=== PATIENT | female | born 1940 | race Caucasian/White ===

== ENCOUNTER 2016-12-15 08:29 | Inpatient (IN) | payer MEDICARE, OTHER ==
[~2016-12-15] VITALS: Ht 160 cm; Wt 76.2 kg
[~2016-12-15 08:29] MED LIST: ACET-2154 PO; ASCO500T9 PO; BISA10SU12 RC; CITA10TA17 PO; CRAN425C PO; DOCU-25 PO; FAMO-132 PO; FERR-58 PO; FOLI1TAB16 PO; HEPA500014 IJ; IVER3TAB PO; LEVO100T PO; MAGN400O4 PO; MULT-70 PO; NA P133E RC; OXCA600T5 PO; OXYC-128 PO; PERMETHRIN TP; PERP2TAB5 PO; RXAMI XX; SENN1TAB83 PO; TRAZ-144 PO
[2016-12-15] MEDS ORDERED: OLAN5TAB3 PO (08:55)
[2016-12-15] MEDS ORDERED: ACET-2605 PO (08:55)
[2016-12-15] MEDS ORDERED: LORA-258 PO (08:55)
[2016-12-15] MEDS ORDERED: AMIN30LI2 PO (08:55)
[2016-12-15] MEDS ORDERED: ROBITUSSIN DM PO (08:55)
[2016-12-15] MEDS ORDERED: ALBU2.5V38 NEB (08:55)
[2016-12-15] MEDS ORDERED: MUPI22OI2 TP (08:55)
[2016-12-15] MEDS ORDERED: CRAN3875 PO (08:55)
[2016-12-15] MEDS ORDERED: MAALOX PO (08:55)
[2016-12-15] MEDS ORDERED: PANT40TA2 PO (08:55)
[2016-12-15] MEDS ORDERED: IPRATROPIUM NEB (08:55)
[2016-12-15] MEDS ORDERED: DIPH25CA83 PO (08:55)
[2016-12-15 09:16] LABS: BASOPHILS # (AUTO) 0.1 K/uL (0.0-0.2); BASOPHILS % (AUTO) 0.6 % (0.0-2.0); EOSINOPHILS # (AUTO) 0.3 K/uL (0.0-0.7); EOSINOPHILS % (AUTO) 3.2 % (0.0-7.0); HEMATOCRIT 33.1 % (37.0-47.0); HEMOGLOBIN 12.1 g/dL (12.0-16.0); LYMPHOCYTES # (AUTO) 0.8 K/uL (0.8-4.8); LYMPHOCYTES % (AUTO) 9.2 % (20.5-51.5); MEAN CORPUSCULAR HEMOGLOBIN 32.3 uug (27.0-31.0); MEAN CORPUSCULAR HGB CONC 37 g/dL (32.0-37.0); MEAN CORPUSCULAR VOLUME 88.2 fL (81.0-99.0); MONOCYTES # (AUTO) 0.5 K/uL (0.1-1.30); MONOCYTES % (AUTO) 5.8 % (0.0-11.0); NEUTROPHILS # (AUTO) 7.2 K/uL (1.8-8.9); NEUTROPHILS % (AUTO) 81.2 % (38.5-71.5); PLATELET COUNT (AUTO) 337 K/uL (150-450); RED BLOOD CELL COUNT(AUTO) 3.75 MIL/uL (4.20-5.40); RED CELL DISTRIBUTION WIDTH 13.4 % (11.5-14.5); WHITE BLOOD COUNT (AUTO) 8.9 K/uL (4.0-11.2)
[2016-12-15 09:17] LABS: CALCIUM 9.3 mg/dL (8.5-10.1); CARBON DIOXIDE 28 mmol/L (21-32); CHLORIDE 101 mmol/L (98-107); CREATININE 1.4 mg/dL (0.6-1.3); GLUCOSE 99 mg/dL (74-106); POTASSIUM 3.8 mmol/L (3.5-5.1); SODIUM SERUM 136 mmol/L (136-145); UREA NITROGEN, BLOOD 29 mg/dL (7-18)
[2016-12-15 09:30] LABS: ACETAMINOPHEN < 2.0 ug/mL (10-30); ALANINE AMINOTRANSFERASE 18 U/L (14-59); ALBUMIN 3.3 g/dL (3.4-5.0); ALKALINE PHOSPHATASE 116 U/L (50-136); ASPARTATE AMINOTRANSFERASE 13 U/L (15-37); BILIRUBIN,DIRECT 0.1 mg/dL (0.0-0.2); BILIRUBIN,TOTAL 0.3 mg/dL (0.2-1.0); TOTAL PROTEIN, SERUM 8.3 g/dL (6.4-8.2)
[2016-12-15 09:48] LABS: ETHANOL < 3 MG/DL (0-0)
[2016-12-15 12:08] LABS: *BILIRUBIN,URIN NEGATIVE (NEGATIVE); *BLOOD, URINE 2+ (NEGATIVE); *COLOR,URINE YELLOW (YELLOW); *KETONES,URINE NEGATIVE (NEGATIVE); *PROTEIN,URINE 1+ (NEGATIVE); *UROBILINOGEN,URINE 0.2 E.U./dl (NORMAL); LEUKOCYTE ESTERASE ,URINE 3+ (NEGATIVE); PH,URINE 5.5 (5.0-8.0); UGLUCOSE NEGATIVE (NEGATIVE)
[2016-12-15 12:10] LABS: *CLARITY,URINE TURBID (CLEAR); NITRITE, URINE POSITIVE (NEGATIVE)
[2016-12-15] MEDS ORDERED: ACETAMINOPHEN 325 MG TABLET PO PRN ×2 (12:15→13:45)
[2016-12-15] MEDS ORDERED: MAG HYDROX/AL HYDROX/SIMETH 30 ML LIQUID UDC PO PRN (12:15)
[2016-12-15] MEDS ORDERED: MAGNESIUM HYDROXIDE 30 ML LIQUID UDC PO PRN ×2 (12:15→13:45)
[2016-12-15 12:21] LABS: BACTERIA,URINE MANY /HPF (NONE SEEN); MUCUS,URINE MODERATE /LPF (0-FEW); RBC,URINE 80-100 /HPF (0-3); SQUAMOUS EPITHELIAL CELL,UR MODERATE /HPF (NONE SEEN); WBC,URINE TNTC /HPF (0-3)
[2016-12-15 12:22] LABS: *AMPHETAMINE, URINE NEGATIVE (NEGATIVE); *BARBITURATE, URINE NEGATIVE (NEGATIVE); *CANNABINOID, URINE NEGATIVE (NEGATIVE); *COCCAINE, URINE NEGATIVE (NEGATIVE); *OPIATE, URINE NEGATIVE (NEGATIVE); *PHENCYCLIDINE SCREEN,URINE NEGATIVE (NEGATIVE)
[2016-12-15] MEDS ORDERED: ALBUTEROL SULFATE 2.5 MG/3 ML NEBU NEB PRN (13:45)
[2016-12-15] MEDS ORDERED: diphenhydrAMINE 25 MG CAP PO PRN (13:45)
[2016-12-15] MEDS ORDERED: GUAIFENESIN/DEXTROMETHORPHAN 5 ML UDC PO PRN (13:45)
[2016-12-15] MEDS ORDERED: BISACODYL 10 MG SUPP.RECT RC PRN (13:45)
[2016-12-15] MEDS ORDERED: FLEET ENEMA 133 ML BOTTLE RC PRN (13:45)
[2016-12-15] MEDS ORDERED: IPRATROPIUM BROMIDE 0.5 MG/2.5 ML NEBU NEB PRN (13:45)
[2016-12-15] MEDS: PANTOPRAZOLE SODIUM 40 MG TABLET.DR PO SCH (14:49)
[2016-12-15] MEDS: ASCORBIC ACID 500 MG TABLET PO SCH (14:49)
[2016-12-15 16:00] VITALS: BP 109/65
[2016-12-15] MEDS: FERROUS SULFATE 325 MG TABEC PO SCH (16:54)
[2016-12-15] MEDS ORDERED: Medication Not On Formulary EA (Cranberry Extract (Cranberry) 425 MG) PO SCH (17:00)
[2016-12-15] MEDS ORDERED: Medication Not On Formulary EA (Cran/Vitc/Mannose/Inulin/Brom (Uti-Stat Liquid) 30 ML) PO SCH (17:00)
[2016-12-15 19:59] VITALS: BP 115/66
[2016-12-15] MEDS ORDERED: LEVOFLOXACIN 500 MG TABLET PO SCH (20:15)
[2016-12-15] MEDS: DOCUSATE SODIUM 100 MG CAPSULE PO SCH (20:31)
[2016-12-15] MEDS: TEMAZEPAM 7.5 MG CAPSULE PO PRN (21:53)
[2016-12-16] MEDS: PANTOPRAZOLE SODIUM 40 MG TABLET.DR PO SCH (06:14)
[2016-12-16 07:30] VITALS: BP 107/58
[2016-12-16] MEDS: ASCORBIC ACID 500 MG TABLET PO SCH (08:08)
[2016-12-16] MEDS: FERROUS SULFATE 325 MG TABEC PO SCH ×2 (08:08→17:14)
[2016-12-16] MEDS: PROTEIN SUPPLEMENT (PROSTAT) 30 ML LIQUID PO SCH (08:30)
[2016-12-16] MEDS: OXCARBAZEPINE 300 MG TABLET PO SCH ×2 (10:27→17:14)
[2016-12-16] MEDS: OLANZAPINE 5 MG TABLET PO SCH ×2 (10:27→17:13)
[2016-12-16 16:00] VITALS: BP 124/67
[2016-12-16] MEDS: CLONAZEPAM 0.5 MG TABLET PO PRN (17:14)
[2016-12-16 20:01] VITALS: BP 114/62
[2016-12-16] MEDS: DOCUSATE SODIUM 100 MG CAPSULE PO SCH (20:11)
[2016-12-16] MEDS: LEVOFLOXACIN 250 MG TABLET PO SCH (20:11)
[2016-12-16] MEDS: CLOTRIMAZOLE/BETAMET DIPROP CREAM 15 GM TUBE TOP SCH (20:14)
[2016-12-16] MEDS: TEMAZEPAM 7.5 MG CAPSULE PO PRN (21:15)
[2016-12-16] MEDS ORDERED: MUPIROCIN 2% OINT 22 GM TUBE ONE (21:16)
[2016-12-16] MEDS: MUPIROCIN 2% OINT 22 GM TUBE NS SCH (21:22)
[2016-12-17] MEDS: PANTOPRAZOLE SODIUM 40 MG TABLET.DR PO SCH (06:23)
[2016-12-17 08:11] LABS: BASOPHILS # (AUTO) 0.1 K/uL (0.0-0.2); BASOPHILS % (AUTO) 0.6 % (0.0-2.0); EOSINOPHILS # (AUTO) 0.3 K/uL (0.0-0.7); EOSINOPHILS % (AUTO) 3.7 % (0.0-7.0); HEMATOCRIT 35.1 % (37.0-47.0); HEMOGLOBIN 11.5 g/dL (12.0-16.0); LYMPHOCYTES # (AUTO) 1.1 K/uL (0.8-4.8); LYMPHOCYTES % (AUTO) 12.2 % (20.5-51.5); MEAN CORPUSCULAR HEMOGLOBIN 29.1 uug (27.0-31.0); MEAN CORPUSCULAR HGB CONC 33 g/dL (32.0-37.0); MEAN CORPUSCULAR VOLUME 89.2 fL (81.0-99.0); MONOCYTES # (AUTO) 0.8 K/uL (0.1-1.30); MONOCYTES % (AUTO) 9.2 % (0.0-11.0); NEUTROPHILS # (AUTO) 6.5 K/uL (1.8-8.9); NEUTROPHILS % (AUTO) 74.3 % (38.5-71.5); PLATELET COUNT (AUTO) 392 K/uL (150-450); RED BLOOD CELL COUNT(AUTO) 3.93 MIL/uL (4.20-5.40); RED CELL DISTRIBUTION WIDTH 13.8 % (11.5-14.5); WHITE BLOOD COUNT (AUTO) 8.8 K/uL (4.0-11.2)
[2016-12-17 08:34] LABS: BILIRUBIN,TOTAL 0.3 mg/dL (0.2-1.0); CALCIUM 9.4 mg/dL (8.5-10.1); MAGNESIUM 1.7 mg/dL (1.8-2.4); POTASSIUM 4.4 mmol/L (3.5-5.1); TOTAL PROTEIN, SERUM 8.6 g/dL (6.4-8.2)
[2016-12-17 08:35] LABS: CREATININE 1.6 mg/dL (0.6-1.3)
[2016-12-17] MEDS: FERROUS SULFATE 325 MG TABEC PO SCH ×2 (09:17→16:08)
[2016-12-17] MEDS: ASCORBIC ACID 500 MG TABLET PO SCH (09:17)
[2016-12-17] MEDS: OXCARBAZEPINE 300 MG TABLET PO SCH ×2 (09:17→16:08)
[2016-12-17] MEDS: OLANZAPINE 5 MG TABLET PO SCH (09:17)
[2016-12-17] MEDS: MUPIROCIN 2% OINT 22 GM TUBE NS SCH ×2 (09:17→21:14)
[2016-12-17] MEDS: CLOTRIMAZOLE/BETAMET DIPROP CREAM 15 GM TUBE TOP SCH ×2 (09:17→21:14)
[2016-12-17] MEDS: PROTEIN SUPPLEMENT (PROSTAT) 30 ML LIQUID PO SCH (09:17)
[2016-12-17] MEDS ORDERED: MAGNESIUM OXIDE 400 MG TABLET PO ONE (13:00)
[2016-12-17 16:46] VITALS: BP 95/53
[2016-12-17] MEDS: LEVOFLOXACIN 250 MG TABLET PO SCH (20:22)
[2016-12-17] MEDS: DOCUSATE SODIUM 100 MG CAPSULE PO SCH (20:22)
[2016-12-17] MEDS: OLANZAPINE 2.5 MG TABLET PO SCH (20:24)
[2016-12-17 21:29] VITALS: BP 113/62
[2016-12-18] MEDS: PANTOPRAZOLE SODIUM 40 MG TABLET.DR PO SCH (06:12)
[2016-12-18 07:30] VITALS: BP 102/57
[2016-12-18] MEDS: PROTEIN SUPPLEMENT (PROSTAT) 30 ML LIQUID PO SCH (08:00)
[2016-12-18] MEDS: OLANZAPINE 5 MG TABLET PO SCH (09:31)
[2016-12-18] MEDS: OXCARBAZEPINE 300 MG TABLET PO SCH ×2 (09:31→17:36)
[2016-12-18] MEDS: FERROUS SULFATE 325 MG TABEC PO SCH ×2 (09:32→17:36)
[2016-12-18] MEDS: ASCORBIC ACID 500 MG TABLET PO SCH (09:32)
[2016-12-18] MEDS: CLOTRIMAZOLE/BETAMET DIPROP CREAM 15 GM TUBE TOP SCH ×2 (09:32→20:29)
[2016-12-18] MEDS: MUPIROCIN 2% OINT 22 GM TUBE NS SCH ×2 (09:33→20:29)
[2016-12-18 16:38] VITALS: BP 97/51
[2016-12-18 20:01] VITALS: BP 127/67
[2016-12-18] MEDS: LEVOFLOXACIN 250 MG TABLET PO SCH (20:29)
[2016-12-18] MEDS: DOCUSATE SODIUM 100 MG CAPSULE PO SCH (20:29)
[2016-12-18] MEDS: OLANZAPINE 2.5 MG TABLET PO SCH (20:30)
[2016-12-19] MEDS: PANTOPRAZOLE SODIUM 40 MG TABLET.DR PO SCH (06:11)
[2016-12-19 07:30] VITALS: BP 92/54
[2016-12-19] MEDS: FERROUS SULFATE 325 MG TABEC PO SCH ×2 (08:46→17:47)
[2016-12-19] MEDS: OXCARBAZEPINE 300 MG TABLET PO SCH ×2 (08:46→17:47)
[2016-12-19] MEDS: OLANZAPINE 5 MG TABLET PO SCH (08:46)
[2016-12-19] MEDS: ASCORBIC ACID 500 MG TABLET PO SCH (08:46)
[2016-12-19] MEDS: CLOTRIMAZOLE/BETAMET DIPROP CREAM 15 GM TUBE TOP SCH ×2 (08:48→21:55)
[2016-12-19] MEDS: PROTEIN SUPPLEMENT (PROSTAT) 30 ML LIQUID PO SCH (08:51)
[2016-12-19] MEDS: MUPIROCIN 2% OINT 22 GM TUBE NS SCH ×2 (08:52→21:55)
[2016-12-19 15:10] LABS: THYROID STIMULATING HORMONE 3.466 mIU/mL (0.358-3.740)
[2016-12-19 16:12] VITALS: BP 108/58
[2016-12-19] MEDS: CLONAZEPAM 0.5 MG TABLET PO PRN (18:57)
[2016-12-19 20:09] VITALS: BP 104/54
[2016-12-19] MEDS: DOCUSATE SODIUM 100 MG CAPSULE PO SCH (21:52)
[2016-12-19] MEDS: LEVOFLOXACIN 250 MG TABLET PO SCH (21:52)
[2016-12-19] MEDS: OLANZAPINE 2.5 MG TABLET PO SCH (21:52)
[2016-12-20] MEDS: PANTOPRAZOLE SODIUM 40 MG TABLET.DR PO SCH (06:56)
[2016-12-20 07:30] VITALS: BP 96/57
[2016-12-20] MEDS: PROTEIN SUPPLEMENT (PROSTAT) 30 ML LIQUID PO SCH (08:00)
[2016-12-20] MEDS: OXCARBAZEPINE 300 MG TABLET PO SCH ×2 (08:15→17:09)
[2016-12-20] MEDS: ASCORBIC ACID 500 MG TABLET PO SCH (08:15)
[2016-12-20] MEDS: OLANZAPINE 5 MG TABLET PO SCH (08:15)
[2016-12-20] MEDS: FERROUS SULFATE 325 MG TABEC PO SCH ×2 (08:15→17:09)
[2016-12-20] MEDS: MUPIROCIN 2% OINT 22 GM TUBE NS SCH ×2 (08:18→20:24)
[2016-12-20] MEDS: CLOTRIMAZOLE/BETAMET DIPROP CREAM 15 GM TUBE TOP SCH ×2 (09:47→20:24)
[2016-12-20 16:00] VITALS: BP 114/60
[2016-12-20 19:40] VITALS: BP 127/71
[2016-12-20] MEDS: DOCUSATE SODIUM 100 MG CAPSULE PO SCH (20:21)
[2016-12-20] MEDS: LEVOFLOXACIN 250 MG TABLET PO SCH (20:22)
[2016-12-20] MEDS: OLANZAPINE 2.5 MG TABLET PO SCH (20:22)
[2016-12-20] MEDS: TEMAZEPAM 7.5 MG CAPSULE PO PRN (23:06)
[2016-12-21] MEDS: CLONAZEPAM 0.5 MG TABLET PO PRN (04:10)
[2016-12-21] MEDS: PANTOPRAZOLE SODIUM 40 MG TABLET.DR PO SCH (06:03)
[2016-12-21 07:30] VITALS: BP 119/63
[2016-12-21] MEDS: ASCORBIC ACID 500 MG TABLET PO SCH (08:01)
[2016-12-21] MEDS: FERROUS SULFATE 325 MG TABEC PO SCH ×2 (08:01→17:42)
[2016-12-21] MEDS: OLANZAPINE 5 MG TABLET PO SCH (08:01)
[2016-12-21] MEDS: OXCARBAZEPINE 300 MG TABLET PO SCH ×2 (08:01→17:42)
[2016-12-21] MEDS: MUPIROCIN 2% OINT 22 GM TUBE NS SCH (08:02)
[2016-12-21] MEDS: CLOTRIMAZOLE/BETAMET DIPROP CREAM 15 GM TUBE TOP SCH (08:02)
[2016-12-21] MEDS: PROTEIN SUPPLEMENT (PROSTAT) 30 ML LIQUID PO SCH (08:03)
[2016-12-21 15:01] VITALS: BP 104/57
[2016-12-21] MEDS ORDERED: OLANZAPINE 5 MG TABLET PO SCH (21:00)
[2016-12-21] MEDS ORDERED: OLANZAPINE 2.5 MG TABLET PO SCH (21:00)
[2016-12-25] MEDS ORDERED: OXCA300T4 PO (11:34)
[2016-12-25] MEDS ORDERED: HALO0.5T6 PO (11:34)
== END 2016-12-21 18:30 | disposition short-term general hospital (02) | DRG 885 ==
LOC: ER 08:29 → GPS 11:43
PROVIDERS: ADMIT Psychiatry & Neurology Psychiatry; ATTEND Internal Medicine
DX: F31.64 Bipolar disorder, current episode mixed, severe, with psychotic features (principal); N17.9 Acute kidney failure, unspecified; N18.9 Chronic kidney disease, unspecified; G92 Toxic encephalopathy; N39.0 Urinary tract infection, site not specified; I13.0 Hypertensive heart and chronic kidney disease with heart failure and stage 1 through stage 4 chronic kidney disease, or unspecified chronic kidney disease; F29 Unspecified psychosis not due to a substance or known physiological condition; D64.9 Anemia, unspecified; E03.9 Hypothyroidism, unspecified; F03.90 Unspecified dementia, unspecified severity, without behavioral disturbance, psychotic disturbance, mood disturbance, and anxiety; F41.9 Anxiety disorder, unspecified; Z73.6 Limitation of activities due to disability; E11.22 Type 2 diabetes mellitus with diabetic chronic kidney disease; I25.10 Atherosclerotic heart disease of native coronary artery without angina pectoris; K21.9 Gastro-esophageal reflux disease without esophagitis; J44.9 Chronic obstructive pulmonary disease, unspecified; B96.20 Unspecified Escherichia coli [E. coli] as the cause of diseases classified elsewhere; Z22.322 Carrier or suspected carrier of Methicillin resistant Staphylococcus aureus; I50.9 Heart failure, unspecified; Z88.0 Allergy status to penicillin; Z98.2 Presence of cerebrospinal fluid drainage device; Z87.440 Personal history of urinary (tract) infections; Z79.899 Other long term (current) drug therapy
CPT/HCPCS: 36415; 80307; 83735; 84100; 84443; 85025; 85730; 87077; 87086; 93005; 97001; 97116; 97530; A4663; C1758; G0480-TC; G6040-TC; Q0163

== ENCOUNTER 2016-12-21 19:34 | Inpatient (IN) | payer MEDICARE, OTHER ==
[~2016-12-21] VITALS: Ht 160 cm; Wt 71.3 kg
[2016-12-21 19:30] VITALS: BP 105/53
[~2016-12-21 19:34] MED LIST changes: +ACET-2605 PO; +ALBU2.5V38 NEB; +AMIN30LI2 PO; -CITA10TA17 PO; +CRAN3875 PO; +DIPH25CA83 PO; -FAMO-132 PO; -FOLI1TAB16 PO; -HEPA500014 IJ; +IPRATROPIUM NEB; -IVER3TAB PO; -LEVO100T PO; +MAALOX PO; -MULT-70 PO; -OXCA600T5 PO; -OXYC-128 PO; +PANT40TA2 PO; -PERMETHRIN TP; -PERP2TAB5 PO; +ROBITUSSIN DM PO; -RXAMI XX; -SENN1TAB83 PO; -TRAZ-144 PO
--- NOTE | 2016-12-21 20:00 | NUR ---
ADMITTED THIS 75 Y.O. LADY FROM MENTAL HEALTH UNIT,VIA WC, IN APPARENTLY FAIR CONDITION,ALERT ,ORIENTED TO SELF ONLY,ON 14 DAY,HOLD DUE ON12/31, SKIN WARM AND DRY, VITAL SIGNS W/I NL, APPEARS WEAK ,NEEDS ASSISTANCE WITH ADLS. ADMISSION CARE RENDERED, DR. FRANCE REESE NOTIFIED AND ORDERS CARRIED OUT AND IMPLEMENTED.
--- NOTE | 2016-12-21 21:16 | NUR ---
DR. BHAVESH WOLFF MADE AWARE OF PTS ADMISSION TO MED SURG FLOOR FOR URINARY TRACT INFECTION, ON MRSA PREC FR NARES.
[2016-12-21] MEDS ORDERED: LEVOFLOXACIN 250MG /D5W 250 MG in PREMIXED 1 EACH IV SCH (22:00)
[2016-12-21] MEDS ORDERED: LEVOFLOXACIN 250MG /D5W 50 ML IV ONE (23:06)
--- NOTE | 2016-12-22 | NUR ---
REFUSED TO TAKE ANY MEDICATIONS ORALLY,OK TO HAVE IVPB ATB ,SLEPT ON AND OFF, 1:1SITTER AT BEDSIDE, NO UNUSUAL BEHAVIOR OBSERVED.REMAIN CONFUSED AND DEMENTED.TO BE SEEN BY DR.ABUL GLASS IN THE AM PER DR. WOLFF.TOLERATED LEVAQUIN WELL, NOUNTOWARD
[2016-12-22 04:20] VITALS: BP 106/57
[2016-12-22] MEDS ORDERED: ACETAMINOPHEN 325 MG TABLET PO PRN (07:30)
[2016-12-22] MEDS ORDERED: ACETAMINOPHEN ES 500 MG TABLET PO PRN (07:30)
[2016-12-22] MEDS ORDERED: MISCELLANEOUS MED XX PRN (07:30)
[2016-12-22] MEDS ORDERED: ALBUTEROL SULFATE 2.5 MG/3 ML NEBU NEB PRN (07:30)
[2016-12-22] MEDS ORDERED: MAG HYDROX/AL HYDROX/SIMETH 30 ML LIQUID UDC PO PRN (07:30)
[2016-12-22] MEDS ORDERED: IPRATROPIUM BROMIDE 0.5 MG/2.5 ML NEBU NEB PRN (07:30)
[2016-12-22] MEDS ORDERED: diphenhydrAMINE 25 MG CAP PO PRN (07:30)
[2016-12-22] MEDS ORDERED: FLEET ENEMA 133 ML BOTTLE RC PRN (07:30)
[2016-12-22] MEDS ORDERED: GUAIFENESIN/DEXTROMETHORPHAN 5 ML UDC PO PRN (07:30)
[2016-12-22] MEDS ORDERED: BISACODYL 10 MG SUPP.RECT RC PRN (07:30)
[2016-12-22] MEDS ORDERED: MAGNESIUM HYDROXIDE 30 ML LIQUID UDC PO PRN (07:30)
[2016-12-22] MEDS: PROTEIN SUPPLEMENT (PROSTAT) 30 ML LIQUID PO SCH (08:00)
[2016-12-22] MEDS ORDERED: MISCELLANEOUS MED XX SCH (09:00)
[2016-12-22] MEDS: FERROUS SULFATE 325 MG TABEC PO SCH ×2 (09:01→17:34)
[2016-12-22] MEDS: PANTOPRAZOLE SODIUM 40 MG TABLET.DR PO SCH (09:01)
[2016-12-22] MEDS: ASCORBIC ACID 500 MG TABLET PO SCH (09:02)
[2016-12-22 12:00] VITALS: BP 100/51
[2016-12-22 16:13] VITALS: BP 106/54
--- NOTE | 2016-12-22 18:17 | NUR ---
Patient in bed awake, no ss of distress noted. Denied pain. Sitter for safety. Patient have been calm and cooperative with care and medications administration. VS wnl. One BM today. Son came to visit, ask to please no release information to anyone, except for him. No power of research attorney in chart, report will be endorse to next nurse to follow up. Iv still intact. Safety and comfort provided by staff. Will continue monitoring.
[2016-12-22] MEDS: OXCARBAZEPINE 300 MG TABLET PO SCH ×2 (18:45→20:09)
[2016-12-22] MEDS: HALOPERIDOL 0.5 MG TABLET PO SCH (19:00)
[2016-12-22 19:31] VITALS: BP 108/52
[2016-12-22] MEDS: MEROPENEM 500 MG in IV NORMAL SALINE 50 ML IV SCH (20:00)
[2016-12-22] MEDS: DOCUSATE SODIUM 100 MG CAPSULE PO SCH (20:09)
[2016-12-22] MEDS ORDERED: LEVOFLOXACIN 250MG /D5W 250 MG in PREMIXED 1 EACH IV SCH (21:00)
--- NOTE | 2016-12-22 21:00 | NUR ---
PATIENT COMPLIANT WITH MEDICATIONS AND CARE,TOOK ALL MEDICATION,REMAINS CALM,CONFUSED AT TIMES,ON CONTACT ISOLATIONS FOR MRSA OF NARES, 1:1 SITTER AT BEDSIDE PATIENT ON 14 DAYS HOLD,SAFETY PRECAUTIONS OBSERVED.SEEN BY ID ,MERREM 500 MG IV INITIATED,PATIENT TOLERATED WELL.
[2016-12-22] MEDS ORDERED: MEROPENEM 500 MG VIAL IV ONE (21:11)
[2016-12-23 04:00] VITALS: BP 106/60
--- NOTE | 2016-12-23 05:03 | NUR ---
patient sleep intermittently,no agitation noted ,slept 6-7 hours,safety precautions.
[2016-12-23] MEDS: PANTOPRAZOLE SODIUM 40 MG TABLET.DR PO SCH (06:12)
[2016-12-23 06:29] LABS: CALCIUM 9.1 mg/dL (8.5-10.1); CREATININE 1.3 mg/dL (0.6-1.3); MAGNESIUM 1.8 mg/dL (1.8-2.4); PHOSPHOROUS 3.5 mg/dL (2.5-4.9); POTASSIUM 4.4 mmol/L (3.5-5.1)
[2016-12-23 07:10] LABS: BASOPHILS % (AUTO) 0.5 % (0.0-2.0); EOSINOPHILS # (AUTO) 0.4 K/uL (0.0-0.7); EOSINOPHILS % (AUTO) 5.2 % (0.0-7.0); HEMATOCRIT 31.2 % (31.2-41.9); HEMOGLOBIN 10.5 g/dL (10.9-14.3); LYMPHOCYTES % (AUTO) 13.5 % (20.5-51.5); MEAN CORPUSCULAR HEMOGLOBIN 29.5 uug (24.7-32.8); MEAN CORPUSCULAR HGB CONC 34 g/dL (32.3-35.6); MEAN CORPUSCULAR VOLUME 87.4 fL (75.5-95.3); MONOCYTES # (AUTO) 0.6 K/uL (2.0-10.0); MONOCYTES % (AUTO) 7.7 % (0.0-11.0); NEUTROPHILS # (AUTO) 5.5 K/uL (1.8-8.9); NEUTROPHILS % (AUTO) 73.1 % (38.5-71.5); PLATELET COUNT (AUTO) 374 K/uL (179-408); RED BLOOD CELL COUNT(AUTO) 3.57 MIL/uL (3.63-4.92); RED CELL DISTRIBUTION WIDTH 13.3 % (12.3-17.7); WHITE BLOOD COUNT (AUTO) 7.5 K/uL (3.8-11.8)
--- NOTE | 2016-12-23 07:10 | NUR ---
PT AWAKE IN BED, NO SIGNS OF ACUTE DISTRESS, ALL SAFETY AND COMFORT MEASURES ATTENDED TOO, ISOLATION PRECAUTIONS MAINTAINED, 1:1 SITTER AT BEDSIDE CALL LIGHT IN REACH
[2016-12-23] MEDS: HALOPERIDOL 0.5 MG TABLET PO SCH ×3 (08:15→16:56)
[2016-12-23] MEDS: ASCORBIC ACID 500 MG TABLET PO SCH (08:15)
[2016-12-23] MEDS: FERROUS SULFATE 325 MG TABEC PO SCH ×2 (08:15→16:56)
[2016-12-23] MEDS: PROTEIN SUPPLEMENT (PROSTAT) 30 ML LIQUID PO SCH (08:15)
[2016-12-23 09:10] VITALS: BP 105/53
[2016-12-23] MEDS: MEROPENEM 500 MG in IV NORMAL SALINE 50 ML IV SCH ×2 (10:00→21:27)
[2016-12-23 11:00] VITALS: BP 90/52
[2016-12-23 16:14] VITALS: BP 96/52
[2016-12-23] MEDS: OXCARBAZEPINE 300 MG TABLET PO SCH (16:56)
--- NOTE | 2016-12-23 19:09 | NUR ---
NO CHANGES NOTED THROUGHOUT SHIFT
--- NOTE | 2016-12-23 19:30 | NUR ---
RECD PT IN APPARENTLY FAIR CONDITION , NO ACUTE DISTRESS NOTED, VS TAKEN AND RECORDED. NEEDS ATTENDED TO , ON MRSA PREC IN THE NARES, ISOL MEASURES OBSERVED AND MAINTAINED.DUE MEDS GIVEN , TOLERATED WELL/. VERBALLY ACTIVE MOST OF THE TIME.PLEASANTLY CONFUSED.
[2016-12-23 20:00] VITALS: BP 110/51
[2016-12-23 20:22] VITALS: BP 110/51
[2016-12-23] MEDS: DOCUSATE SODIUM 100 MG CAPSULE PO SCH (21:27)
[2016-12-23] MEDS: MUPIROCIN 2% OINT 22 GM TUBE NS SCH (21:29)
--- NOTE | 2016-12-24 00:30 | NUR ---
COMPLAINED OF ITCHING ON UPPER EXTREMITIES, BENADRYL 25MG GIVEN ORDERED.SEEN BY DR. Janet GLASS, NO FURTHER ORDERS GIVEN.
--- NOTE | 2016-12-24 01:28 | NUR ---
NO FURTHER C/O ITCHING, SLEPT INTERMITTENTLY, RAILS UP.ON 1;1 SITTER.
--- NOTE | 2016-12-24 01:40 | NUR ---
STILL ON 14 DAY HOLD TILL 12/31/13.NO UNUSUAL BEHAVIOR OBSERVED.
[2016-12-24] MEDS: PANTOPRAZOLE SODIUM 40 MG TABLET.DR PO SCH (05:53)
[2016-12-24 06:46] VITALS: BP 105/54
--- NOTE | 2016-12-24 06:51 | NUR ---
pt has not had a bm in couple days,requested mom this morning, still no bm noted, abd soft and non tender.had lawrence noc
--- NOTE | 2016-12-24 08:00 | NUR ---
RECEIVED AWAKE ALERT, DENIES PAIN OR DISCOMFORT, CONTACT ISOLATION FOR MRSA NARES MAINTAINED, 1-1 SITTER FOR 14 DAY HOLD.
[2016-12-24] MEDS: MEROPENEM 500 MG in IV NORMAL SALINE 50 ML IV SCH ×2 (08:10→20:19)
[2016-12-24] MEDS: OXCARBAZEPINE 300 MG TABLET PO SCH ×2 (08:11→17:33)
[2016-12-24] MEDS: ASCORBIC ACID 500 MG TABLET PO SCH (08:11)
[2016-12-24] MEDS: HALOPERIDOL 0.5 MG TABLET PO SCH ×3 (08:11→20:28)
[2016-12-24] MEDS: PROTEIN SUPPLEMENT (PROSTAT) 30 ML LIQUID PO SCH (08:11)
[2016-12-24] MEDS: FERROUS SULFATE 325 MG TABEC PO SCH ×2 (08:11→17:33)
[2016-12-24] MEDS: MUPIROCIN 2% OINT 22 GM TUBE NS SCH ×2 (08:17→20:27)
[2016-12-24 10:00] VITALS: BP 107/60
--- NOTE | 2016-12-24 12:06 | NUR ---
rambles words with conversation requires redirection to complete conversation
--- NOTE | 2016-12-24 12:08 | NUR ---
DR DAVE VISITING
[2016-12-24 12:37] VITALS: BP 101/51
[2016-12-24 16:00] VITALS: BP 114/69
--- NOTE | 2016-12-24 16:15 | NUR ---
REFUSING TO TAKE HALDOL AT 1300 WAS ABLE TO ADMINISTER MED AT 1600
--- NOTE | 2016-12-24 18:34 | NUR ---
STABLE ON Q 1 HOUR ROUNDS ALL NEEDS MET
--- NOTE | 2016-12-24 20:00 | NUR ---
RECEIVED PATIENT AWAKE IN BED WITH SON AT BEDSIDE. PATIENT IS A/O X2. NEEDS FREQUENT REDIRECTION. DENIES PAIN OR DISCOMFORT. NO RESP. DISTRESS NOTED. VSS. SITTER AT BEDSIDE FOR SAFETY. BED ALARM ON. CALL LIGHT IN REACH. ALL NEEDS ATTENDED. WILL CONTINUE TO MONITOR.
[2016-12-24] MEDS: DOCUSATE SODIUM 100 MG CAPSULE PO SCH (20:27)
[2016-12-24 20:30] VITALS: BP 96/45
[2016-12-25 04:55] VITALS: BP 129/69
--- NOTE | 2016-12-25 06:00 | NUR ---
PATIENT AWAKE IN BED. VERY ELATED AND HYPER-VERBAL THIS MORNING. SLEPT AT INTERVALS THROUGHOUT THE NIGHT. VSS. DENIES PAIN OR DISCOMFORT. NO RESP.DISTRESS NOTED. BED ALARM ON. CALL LIGHT IN REACH. ALL NEEDS ATTENDED. WILL CONTINUE TO MONITOR.
[2016-12-25] MEDS: PANTOPRAZOLE SODIUM 40 MG TABLET.DR PO SCH (06:21)
[2016-12-25] MEDS: MEROPENEM 500 MG in IV NORMAL SALINE 50 ML IV SCH (07:55)
[2016-12-25] MEDS: MUPIROCIN 2% OINT 22 GM TUBE NS SCH ×2 (08:12→20:48)
[2016-12-25] MEDS: PROTEIN SUPPLEMENT (PROSTAT) 30 ML LIQUID PO SCH (08:12)
[2016-12-25] MEDS: HALOPERIDOL 0.5 MG TABLET PO SCH ×3 (08:12→16:27)
[2016-12-25] MEDS: ASCORBIC ACID 500 MG TABLET PO SCH (08:12)
[2016-12-25] MEDS: FERROUS SULFATE 325 MG TABEC PO SCH ×2 (08:12→16:27)
[2016-12-25] MEDS: OXCARBAZEPINE 300 MG TABLET PO SCH ×2 (08:12→16:27)
--- NOTE | 2016-12-25 08:49 | NUR ---
PT COMPLAINING OF BACK AND LEGS ITCHING. NO REDNESS NOTED. OFFERED BENADRYL BUT PT REFUSING. REPOSITIONED PT AND PT VERBALIZED A LITTLE RELIEF, WILL CONTINUE TO MONITOR
--- NOTE | 2016-12-25 10:00 | NUR ---
PT STATED ITCHING HAS GONE AWAY, TURNED AND REPOSITIONED FOR COMFORT, CALL LIGHT IN REACH
[2016-12-25] MEDS ORDERED: HALO0.5T6 PO (11:34)
[2016-12-25] MEDS ORDERED: OXCA300T4 PO (11:34)
[2016-12-25 12:08] VITALS: BP 92/48
--- NOTE | 2016-12-25 15:30 | NUR ---
Spoke with Joe [Son [phone]] who requested for inquiries to be sent to: 1. [facility] [address] [place] [address] 2. [facility] [address] [place] [address] 1600: [facility] is willing to accept the patient pending an in person evaluation. Their freight rate clerk will come to evaluate the patient tomorrow. This senior account manager informed Joe, who is aware and agreeable. CM/SW to follow.
[2016-12-25 16:02] VITALS: BP 120/55
--- NOTE | 2016-12-25 17:33 | NUR ---
PT AWAKE IN BED, NO SIGNS OF SCUTE DISTRESS. IV INTACT AND PATENT, PT HAD 2 BM TODAY, ALL SAFETY AND COMFORT MEASURES MAINTAINED THROUGHOUT SHIFT, CALL LIGHT IN REACH.
[2016-12-25 20:00] VITALS: BP 101/59
--- NOTE | 2016-12-25 20:00 | NUR ---
RECEIVED PATIENT ASLEEP IN BED. EASILY AROUSABLE. FAMILY AT BEDSIDE TO VISIT. PATIENT IS A/O X3. Addendum: 12/25/16 at 2127 by CHRISTELLE MOON LVN CLARIFICATION- PATIENT IS A/O X2. PLEASANT WHEN APPROACHED. REMAINS ON ISOLATION FOR MRSA-NARES. PATIENT DENIES ANY PAIN OR DISCOMFORT. NO RESP. DISTRESS NOTED. BED ALARM ON. CALL LIGHT IN REACH. ALL NEEDS ATTENDED. WILL CONTINUE TO MONITOR .
[2016-12-25] MEDS: DOCUSATE SODIUM 100 MG CAPSULE PO SCH (20:48)
[2016-12-26 04:09] VITALS: BP 106/60
--- NOTE | 2016-12-26 06:30 | NUR ---
PATIENT AWAKE IN BED. HYPER-VERBAL THIS AM. CONFUSED BUT PLEASANT WHEN APPROACHED. SLEPT WELL THROUGHOUT THE NIGHT. VSS. NO RESP. DISTRESS NOTED. BED ALARM ON. CALL LIGHT IN REACH. ALL NEEDS ATTENDED. WILL CONTINUE TO MONITOR.
[2016-12-26] MEDS: PANTOPRAZOLE SODIUM 40 MG TABLET.DR PO SCH (06:40)
--- NOTE | 2016-12-26 08:00 | NUR ---
awake, oriented x 2, denies of pain, no itching, repositioned and breakfast served, safety measures maintained, bed alarm on with call light within reach
[2016-12-26] MEDS: OXCARBAZEPINE 300 MG TABLET PO SCH ×2 (08:11→17:28)
[2016-12-26] MEDS: FERROUS SULFATE 325 MG TABEC PO SCH ×2 (08:11→17:28)
[2016-12-26] MEDS: HALOPERIDOL 0.5 MG TABLET PO SCH ×3 (08:11→17:28)
[2016-12-26] MEDS: PROTEIN SUPPLEMENT (PROSTAT) 30 ML LIQUID PO SCH (08:11)
[2016-12-26] MEDS: ASCORBIC ACID 500 MG TABLET PO SCH (08:12)
[2016-12-26] MEDS: MUPIROCIN 2% OINT 22 GM TUBE NS SCH (08:18)
[2016-12-26 11:45] VITALS: BP 102/54
--- NOTE | 2016-12-26 12:00 | NUR ---
appetite good, taking fluids well, needs attended.
--- NOTE | 2016-12-26 14:26 | NUR ---
Spoke to the patient's son, Joe [ ], about discharge placement and he was livid with both [facility] and [facility] for not being able to accommodate the patient. He stated that he spoke with Liza from [facility] and he is in agreement for the patient to return to [facility] [ ; [address], [place] [address]]. Faxed all the papers to the attention of Earnestine from [facility] Admission. Her radiation therapy technician, Bhavna, is aware of the discharge plan.
[2016-12-26 16:30] VITALS: BP 106/50
--- NOTE | 2016-12-26 17:10 | NUR ---
called Lisset at [facility] and report given, son informed of the transfer and case picker time by ambulance at 2030 and in agreement
--- NOTE | 2016-12-26 19:08 | NUR ---
remains table, saline lock removed- no swelling/redness noted on site, no distress noted
[2016-12-26 20:12] VITALS: BP 120/65
--- NOTE | 2016-12-26 20:55 | NUR ---
PATIENT WAS HOUSE DESIGNER BY AMBULANCE, DISCHARGE TO [facility], IN STABLE CONDITION, TOOK ALL BELONGINS.
== END 2016-12-26 20:50 | DRG 689 ==
LOC: TELE-TD 19:34 → MED 19:49
PROVIDERS: ADMIT Internal Medicine; ATTEND Internal Medicine
DX: N39.0 Urinary tract infection, site not specified (principal); N17.0 Acute kidney failure with tubular necrosis; F31.64 Bipolar disorder, current episode mixed, severe, with psychotic features; G91.9 Hydrocephalus, unspecified; Z73.6 Limitation of activities due to disability; F29 Unspecified psychosis not due to a substance or known physiological condition; E11.22 Type 2 diabetes mellitus with diabetic chronic kidney disease; I12.9 Hypertensive chronic kidney disease with stage 1 through stage 4 chronic kidney disease, or unspecified chronic kidney disease; J44.9 Chronic obstructive pulmonary disease, unspecified; I25.10 Atherosclerotic heart disease of native coronary artery without angina pectoris; N18.9 Chronic kidney disease, unspecified; F03.90 Unspecified dementia, unspecified severity, without behavioral disturbance, psychotic disturbance, mood disturbance, and anxiety; K21.9 Gastro-esophageal reflux disease without esophagitis; D64.9 Anemia, unspecified; E03.9 Hypothyroidism, unspecified; E86.9 Volume depletion, unspecified; Z87.440 Personal history of urinary (tract) infections; Z88.0 Allergy status to penicillin; Z98.2 Presence of cerebrospinal fluid drainage device
CPT/HCPCS: 36415; 83735; 84100; 85025; J1956; J2185; J3490; J7040; Q0163

== ENCOUNTER 2017-01-15 21:09 | Inpatient (IN) | payer MEDICARE, OTHER ==
[~2017-01-15] VITALS: Ht 160 cm; Wt 82.1 kg
[~2017-01-15 21:09] MED LIST changes: +HALO0.5T6 PO; +OXCA300T4 PO
--- NOTE | 2017-01-15 21:30 | NUR ---
Patient brought in to ER via private ambulance from SNF for psych eval. Patient upon arrival A/Ox2,calm and cooperative. Denies SOB,N/V or pain at this time. When patient was asked "why were you brought to the ER." Patient states "They think I needed to come."
[2017-01-15] MEDS ORDERED: MAG355OR18 PO (21:51)
[2017-01-15] MEDS ORDERED: IPRA3AMP IH (21:51)
[2017-01-15] MEDS ORDERED: ASPI81TA31 PO (21:51)
[2017-01-15] MEDS ORDERED: MULT1TAB11 PO (21:51)
[2017-01-15] MEDS ORDERED: GUAI-965 PO (21:51)
[2017-01-15] MEDS ORDERED: LORA0.5T PO (21:51)
[2017-01-15 22:12] LABS: *BILIRUBIN,URIN NEGATIVE (NEGATIVE); *BLOOD, URINE Trace-intact (NEGATIVE); *CLARITY,URINE CLOUDY (CLEAR); *COLOR,URINE YELLOW (YELLOW); *KETONES,URINE NEGATIVE (NEGATIVE); *PROTEIN,URINE TRACE (NEGATIVE); *UROBILINOGEN,URINE 0.2 E.U./dl (NORMAL); LEUKOCYTE ESTERASE ,URINE 1+ (NEGATIVE); UGLUCOSE NEGATIVE (NEGATIVE)
[2017-01-15 22:14] LABS: BASOPHILS % (AUTO) 0.4 % (0.0-2.0); EOSINOPHILS # (AUTO) 0.4 K/uL (0.0-0.7); EOSINOPHILS % (AUTO) 5.2 % (0.0-7.0); HEMATOCRIT 33.7 % (37-47); HEMOGLOBIN 11.1 G/DL (12.0-16.0); LYMPHOCYTES # (AUTO) 1.2 K/UL (0.8-4.8); LYMPHOCYTES % (AUTO) 17.5 % (20.5-51.5); MEAN CORPUSCULAR HEMOGLOBIN 28.8 UUG (27.0-31.0); MEAN CORPUSCULAR HGB CONC 33 g/dL (32.0-37.0); MEAN CORPUSCULAR VOLUME 87.7 FL (81.0-99.0); MONOCYTES # (AUTO) 0.4 K/UL (0.1-1.30); MONOCYTES % (AUTO) 5.8 % (0.0-11.0); NEUTROPHILS # (AUTO) 4.9 K/UL (1.8-8.9); NEUTROPHILS % (AUTO) 71.1 % (38.5-71.5); PLATELET COUNT (AUTO) 296 K/UL (150-450); RED BLOOD CELL COUNT(AUTO) 3.84 MIL/UL (4.2-5.4); RED CELL DISTRIBUTION WIDTH 14.7 % (11.5-14.5); WHITE BLOOD COUNT (AUTO) 6.9 K/UL (4.0-11.2)
[2017-01-15 22:17] LABS: NITRITE, URINE POSITIVE (NEGATIVE)
[2017-01-15 22:20] LABS: BACTERIA,URINE MANY /HPF (NONE SEEN); SQUAMOUS EPITHELIAL CELL,UR FEW /HPF (NONE SEEN); WBC,URINE 50-80 /HPF (0-3)
[2017-01-15 22:20] LABS: CALCIUM 9.1 mg/dL (8.5-10.1); CARBON DIOXIDE 27 mmol/L (21-32); CHLORIDE 99 mmol/L (98-107); CREATININE 1.2 mg/dL (0.6-1.3); GLUCOSE 110 mg/dL (74-106); SODIUM SERUM 137 mmol/L (136-145); UREA NITROGEN, BLOOD 34 mg/dL (7-18)
[2017-01-15 22:26] LABS: ALANINE AMINOTRANSFERASE 17 U/L (14-59); ALBUMIN 3.4 g/dL (3.4-5.0); ALKALINE PHOSPHATASE 106 U/L (50-136); ASPARTATE AMINOTRANSFERASE 15 U/L (15-37); BILIRUBIN,DIRECT < 0.1 mg/dL (0.0-0.2); BILIRUBIN,TOTAL 0.2 mg/dL (0.2-1.0); TOTAL PROTEIN, SERUM 8.2 g/dL (6.4-8.2)
[2017-01-15 22:28] LABS: TROPONIN I 0.023 ng/mL (0.00-0.056)
[2017-01-15 22:32] LABS: LACTIC ACID 1.3 mmol/L (0.4-2.0)
--- NOTE | 2017-01-15 22:57 | NUR ---
DR SILVA PAGED FOR POSS ADMISSION.
[2017-01-15] MEDS ORDERED: IV NORMAL SALINE 1000 ML BAG IV ONE (23:15)
[2017-01-15] MEDS ORDERED: LEVOFLOXACIN 500 MG/D5W 100ML PIGGYBACK IV ONE (23:15)
[2017-01-15] MEDS ORDERED: GENTAMICIN SULFATE INJ 80 MG in IV DEXTROSE 5% 100 ML IV ONE (23:15)
--- NOTE | 2017-01-15 23:40 | NUR ---
Paged [facility] for possible admission to hospital. Waiting for Dr Leal to call back
[2017-01-15] MEDS ORDERED: LEVOFLOXACIN 500 MG/D5W 100 ML ONE (23:48)
[2017-01-15] MEDS ORDERED: GENTAMICIN SULFATE 80 MG/2 ML VIAL ONE (23:48)
--- NOTE | 2017-01-16 | NUR ---
Called back [facility]. Waiting for Dr Jasvir Martin to call back
--- NOTE | 2017-01-16 00:36 | NUR ---
Dr Vega spoke with Dr Jasvir Martin
--- NOTE | 2017-01-16 01:25 | NUR ---
Transfer to [address] [place] [address] Med surg via humberto
[2017-01-16 01:30] VITALS: BP 126/69
--- NOTE | 2017-01-16 01:30 | NUR ---
PT WAS BROUGHT IN TO FLOOR VIA GURNEY, ADMITTED TO MED SURG UNDER DR. NAMRATA WERNER. DX: UTI. INITIATE ADMISSION ASSESSMENT. BELONGING LISTS REVIEWED. WILL CALL FOR ORDERS.
[2017-01-16] MEDS ORDERED: ALBUTEROL SULFATE 2.5 MG/3 ML NEBU NEB PRN (02:30)
[2017-01-16] MEDS ORDERED: ENOXAPARIN SODIUM 40 MG/0.4 ML DISP.SYRIN SQ SCH (02:30)
[2017-01-16] MEDS: LEVOFLOXACIN 750MG/D5W 750 MG in PREMIXED 1 EACH IV SCH (02:30)
[2017-01-16] MEDS ORDERED: BISACODYL 10 MG SUPP.RECT RC PRN (02:30)
[2017-01-16] MEDS ORDERED: MAGNESIUM HYDROXIDE 30 ML LIQUID UDC PO PRN (02:30)
[2017-01-16] MEDS ORDERED: IPRATROPIUM BROMIDE 0.5 MG/2.5 ML NEBU NEB PRN (02:30)
[2017-01-16] MEDS ORDERED: ONDANSETRON 4 MG/2 ML VIAL IV PRN (02:30)
[2017-01-16] MEDS ORDERED: Z GUARD REMEDY PASTE 57 GM TUBE TOP PRN (02:30)
[2017-01-16] MEDS ORDERED: LEVOFLOXACIN 750MG/D5W 150 ML IV ONE (03:16)
[2017-01-16] MEDS: IV NS 1000 ML 1,000 ML IV PRN ×3 (03:25→22:31)
[2017-01-16] MEDS ORDERED: LORAZEPAM 2 MG/1 ML VIAL IV ONE (04:00)
--- NOTE | 2017-01-16 04:00 | NUR ---
PT WAS AGITATED, SCREAMING ON TOP OF HER LUNGS, VERY CONFUSED, SAYING SHE IS READY TO GIVE . DR. NAMRATA WERNER INFORMED, AND ORDERED ATIVAN 1MG IV X 1. NOTED AND CARRIED OUT. WILL CONTINUE TO MONITOR.
--- NOTE | 2017-01-16 05:07 | NUR ---
LEVAQUIN IV WAS DISCARDED AND NOT GIVEN DUE TO MED GIVEN IN ER @ 0044.
[2017-01-16 05:27] VITALS: BP 124/80
--- NOTE | 2017-01-16 05:48 | NUR ---
PT SLEEPING AT THIS TIME, AROUSABLE TO TOUCH. SL ON RAC WAS PULLED OUT BY PT, NURSES ATTEMPTED TO INSERT SEVERAL TIMES BUT PT WAS REFUSING, AND SCREAMING. NO IV SITE AT THIS TIME
--- NOTE | 2017-01-16 06:50 | NUR ---
PT STARTED SCREAMING AGAIN ON TOP OF HER LUNGS, WAS ABLE TO SLEEP FOR ABOUT AN HOUR AFTER GIVEN ATIVAN IV. PAGED DR OTT.
[2017-01-16] MEDS ORDERED: ALBUTEROL SULFATE 2.5 MG/ 0.5 ML NEBU NEB PRN (07:15)
--- NOTE | 2017-01-16 08:15 | NUR ---
RECEIVED REPORT FROM JAMES/LEXI. PATIENT A/A/O X1. COOPERATIVE. EATING BREAKFAST WITH MINIMUM ASSISTANCE. SITTER AT BESIDE.
[2017-01-16] MEDS: ASPIRIN 81 MG TAB.CHEW PO SCH (09:07)
[2017-01-16] MEDS: OXCARBAZEPINE 300 MG TABLET PO SCH ×2 (09:07→21:24)
[2017-01-16] MEDS: PANTOPRAZOLE SODIUM 40 MG TABLET.DR PO SCH (09:08)
[2017-01-16] MEDS: ASCORBIC ACID 500 MG TABLET PO SCH (09:08)
[2017-01-16] MEDS: FERROUS SULFATE 325 MG TABEC PO SCH ×2 (11:03→17:46)
[2017-01-16 11:05] VITALS: BP 139/88
--- NOTE | 2017-01-16 12:09 | NUR ---
PATIENT AGITATED WITH EPISODES OF VISUAL HALLUCINATIONS, SCREAMING. DR. LUNA WAS NOTIFIED.
[2017-01-16] MEDS: ZIPRASIDONE MESYLATE 20 MG VIAL IM PRN ×2 (12:23→20:39)
[2017-01-16] MEDS: MEROPENEM 0.5 G in IV NORMAL SALINE 50 ML IV SCH ×2 (12:23→22:24)
--- NOTE | 2017-01-16 13:23 | NUR ---
PATIENT STILL AGITATED, WITH OCCASIONAL SCREAMING. SECURED IV INFUSION. REFUSES TO EAT AT THIS TIME. ENSURED SAFETY. WITH SITTER AT BEDSIDE.
--- NOTE | 2017-01-16 14:42 | NUR ---
PATIENT SLEEPING COMFORTABLY IN BED. NO SIGNS OF DISTRESS. IV STILL PATENT. WILL CONTINUE TO MONITOR
[2017-01-16 15:58] VITALS: BP 100/67
--- NOTE | 2017-01-16 18:39 | NUR ---
Patient eating dinner watching TV. Cooperative. No S/S of agitation. Sitter at bedside
--- NOTE | 2017-01-16 19:30 | NUR ---
LAYING ON BED, SCREAMING, ACCUSING PEOPLE TAKING HER THINGS. VERY UNCOOPERATIVE, UNABLE TO TAKE V/S CAUSE PATIENT DOESN'T WANT TO BE TOUCHED. SAFETY MAINTAINED WITH 1:1 SITTER AT BEDSIDE. WILL MONITOR
--- NOTE | 2017-01-16 20:30 | NUR ---
STILL AGITATED. UNABLE TO REDIRECT. WILL ADMINISTER GEODON ORDERED. WILL MONITOR
[2017-01-16] MEDS: DOCUSATE SODIUM 100 MG CAPSULE PO SCH (21:24)
[2017-01-16 21:28] VITALS: BP 93/57
[2017-01-16 21:43] VITALS: BP 95/55
[2017-01-16] MEDS ORDERED: LEVOFLOXACIN 750MG/D5W 750 MG in PREMIXED 1 EACH IV SCH (23:00)
--- NOTE | 2017-01-16 23:00 | NUR ---
PATIENT NOW CALM, SLEEPING AT THIS TIME
[2017-01-17 01:50] VITALS: BP 108/55
[2017-01-17 04:38] VITALS: BP 121/65
[2017-01-17] MEDS: MEROPENEM 0.5 G in IV NORMAL SALINE 50 ML IV SCH (05:21)
[2017-01-17] MEDS: PANTOPRAZOLE SODIUM 40 MG TABLET.DR PO SCH (06:11)
--- NOTE | 2017-01-17 06:31 | NUR ---
ABLE TO SLEEP WELL DURING THE SHIFT. NOW MORE CALM THAN LAST NIGHT. ALL DUE MEDS GIVEN ORDERED. TURNED AND REPOSITIONED, MORE COOPERATIVE. KEPT CLEAN AND DRY. CALL LIGHT WITHIN REACH
[2017-01-17 06:50] LABS: CALCIUM 8.6 mg/dL (8.5-10.1); MAGNESIUM 1.7 mg/dL (1.8-2.4); PHOSPHOROUS 3.1 mg/dL (2.5-4.9); POTASSIUM 4.4 mmol/L (3.5-5.1)
[2017-01-17 06:52] LABS: CREATININE 1.4 mg/dL (0.6-1.3)
[2017-01-17 06:55] LABS: THYROID STIMULATING HORMONE 3.389 mIU/mL (0.358-3.740)
[2017-01-17 06:56] LABS: BASOPHILS % (AUTO) 0.5 % (0.0-2.0); EOSINOPHILS # (AUTO) 0.4 K/uL (0.0-0.7); EOSINOPHILS % (AUTO) 7.2 % (0.0-7.0); HEMOGLOBIN 10.7 G/DL (12.0-16.0); LYMPHOCYTES # (AUTO) 1.1 K/UL (0.8-4.8); LYMPHOCYTES % (AUTO) 18.7 % (20.5-51.5); MEAN CORPUSCULAR HEMOGLOBIN 29.2 UUG (27.0-31.0); MEAN CORPUSCULAR HGB CONC 33 g/dL (32.0-37.0); MEAN CORPUSCULAR VOLUME 87.4 FL (81.0-99.0); MONOCYTES # (AUTO) 0.4 K/UL (0.1-1.30); MONOCYTES % (AUTO) 6.8 % (0.0-11.0); NEUTROPHILS # (AUTO) 4.1 K/UL (1.8-8.9); NEUTROPHILS % (AUTO) 66.8 % (38.5-71.5); PLATELET COUNT (AUTO) 239 K/UL (150-450); RED BLOOD CELL COUNT(AUTO) 3.66 MIL/UL (4.2-5.4); RED CELL DISTRIBUTION WIDTH 14.5 % (11.5-14.5)
[2017-01-17 08:00] VITALS: BP 100/72
[2017-01-17] MEDS: ASCORBIC ACID 500 MG TABLET PO SCH (08:05)
[2017-01-17] MEDS: ASPIRIN 81 MG TAB.CHEW PO SCH (08:05)
[2017-01-17] MEDS: OXCARBAZEPINE 300 MG TABLET PO SCH ×2 (08:05→20:32)
[2017-01-17] MEDS: ENOXAPARIN SODIUM 40 MG/0.4 ML DISP.SYRIN SQ SCH (08:06)
[2017-01-17] MEDS: FERROUS SULFATE 325 MG TABEC PO SCH ×2 (10:12→17:12)
[2017-01-17] MEDS ORDERED: MAGNESIUM OXIDE 400 MG TABLET PO ONE (10:15)
[2017-01-17 11:10] VITALS: BP 107/55
[2017-01-17] MEDS: IV NS 1000 ML 1,000 ML IV PRN (13:22)
[2017-01-17] MEDS: MEROPENEM 500 MG in IV NORMAL SALINE 50 ML IV SCH ×2 (13:34→20:30)
[2017-01-17] MEDS: ZIPRASIDONE MESYLATE 20 MG VIAL IM PRN (14:20)
[2017-01-17 16:00] VITALS: BP 98/55
[2017-01-17 19:27] VITALS: BP 120/47
--- NOTE | 2017-01-17 20:00 | NUR ---
PT'S A/A/O X 3;DENIED OF PAIN OR ANY DISCOMFORT,STATED THAT"I'M HAPPY AND OK",DENIED OF PAIN OR ANY DISCOMFORT,LOVED TALKING WITH SOMEONE @ ALL TIME.PT'S COOPERATIVE WITH PM CARE ON BED.MAINTAINED IVF ORDER,REQUESTED FOR VANILLA PUDDING AND TOLERATED WELL NOTED.KEPT COMFORT.SAFETY REINFORCED.BED ALARM'S ON.CLOSELY MONITORING.
[2017-01-17] MEDS: DOCUSATE SODIUM 100 MG CAPSULE PO SCH (20:31)
[2017-01-17] MEDS: MUPIROCIN 2% OINT 22 GM TUBE NS SCH (20:31)
[2017-01-17] MEDS: OLANZAPINE ZYDIS 5 MG TAB.RAPDIS PO SCH (20:32)
[2017-01-17] MEDS: ACETAMINOPHEN 325 MG TABLET PO PRN (20:32)
[2017-01-17] MEDS: ZOLPIDEM 5 MG TABLET PO PRN (22:13)
[2017-01-18] MEDS: IV NS 1000 ML 1,000 ML IV PRN ×2 (02:52→17:47)
[2017-01-18 04:49] VITALS: BP 122/62
[2017-01-18] MEDS: PANTOPRAZOLE SODIUM 40 MG TABLET.DR PO SCH (06:15)
--- NOTE | 2017-01-18 06:30 | NUR ---
ASSISTED PT FOR AM,SKIN CARE ON BED;PT'S COOPERATIVE W/ASSISTANCE.NO AGGRESSIVE BEHAVIOR WAS SEEN IN THE SHIFT,PT'S COOPERATIVE W/CARE AND ABLE TO SLEEP ~6 HOURS OR TONIGHT.NO DISTRESS NOTED IN THE SHIFT.REMAINED 1:1 SITTER @ THE BEDSIDE @ ALL TIME FOR SAFETY.
[2017-01-18 06:56] LABS: ALBUMIN 2.5 g/dL (3.4-5.0); BILIRUBIN,TOTAL 0.3 mg/dL (0.2-1.0); CALCIUM 8.5 mg/dL (8.5-10.1); CREATININE 1.2 mg/dL (0.6-1.3); MAGNESIUM 1.9 mg/dL (1.8-2.4); PHOSPHOROUS 3.4 mg/dL (2.5-4.9); POTASSIUM 4.5 mmol/L (3.5-5.1); TOTAL PROTEIN, SERUM 6.5 g/dL (6.4-8.2)
[2017-01-18 07:19] VITALS: BP 120/63
[2017-01-18 07:23] LABS: BASOPHILS % (AUTO) 0.7 % (0.0-2.0); EOSINOPHILS # (AUTO) 0.4 K/uL (0.0-0.7); EOSINOPHILS % (AUTO) 8.3 % (0.0-7.0); HEMATOCRIT 30.9 % (37-47); HEMOGLOBIN 10.3 G/DL (12.0-16.0); LYMPHOCYTES # (AUTO) 1.1 K/UL (0.8-4.8); LYMPHOCYTES % (AUTO) 21.4 % (20.5-51.5); MEAN CORPUSCULAR HGB CONC 33 g/dL (32.0-37.0); MEAN CORPUSCULAR VOLUME 87.1 FL (81.0-99.0); MONOCYTES # (AUTO) 0.4 K/UL (0.1-1.30); MONOCYTES % (AUTO) 7.1 % (0.0-11.0); NEUTROPHILS # (AUTO) 3.2 K/UL (1.8-8.9); NEUTROPHILS % (AUTO) 62.5 % (38.5-71.5); PLATELET COUNT (AUTO) 243 K/UL (150-450); RED BLOOD CELL COUNT(AUTO) 3.55 MIL/UL (4.2-5.4); RED CELL DISTRIBUTION WIDTH 14.5 % (11.5-14.5); WHITE BLOOD COUNT (AUTO) 5.1 K/UL (4.0-11.2)
[2017-01-18] MEDS: ASCORBIC ACID 500 MG TABLET PO SCH (08:01)
[2017-01-18] MEDS: OXCARBAZEPINE 300 MG TABLET PO SCH ×2 (08:01→21:59)
[2017-01-18] MEDS: MUPIROCIN 2% OINT 22 GM TUBE NS SCH ×2 (08:01→21:58)
[2017-01-18] MEDS: ASPIRIN 81 MG TAB.CHEW PO SCH (08:01)
[2017-01-18] MEDS: ENOXAPARIN SODIUM 40 MG/0.4 ML DISP.SYRIN SQ SCH (08:06)
[2017-01-18] MEDS: MEROPENEM 500 MG in IV NORMAL SALINE 50 ML IV SCH (08:49)
[2017-01-18] MEDS: FERROUS SULFATE 325 MG TABEC PO SCH ×2 (10:35→17:06)
[2017-01-18 12:00] VITALS: BP 106/53
--- NOTE | 2017-01-18 12:03 | NUR ---
pt is yelling screaming on the staff Geodon 3mg im given per md orders.
[2017-01-18] MEDS: ZIPRASIDONE MESYLATE 20 MG VIAL IM PRN (12:05)
[2017-01-18] MEDS ORDERED: MEROPENEM 0.5 G in IV NORMAL SALINE 50 ML IV SCH (15:00)
[2017-01-18 15:39] VITALS: BP 111/54
--- NOTE | 2017-01-18 19:00 | NUR ---
RECD PT IN BED, RESTING COMFORTABLY, VERY TALKATIVE,KEPT WARM AND COMFORTABLE, NEEDS ATTENDED TO,1:1 SITTER AT BEDSIDE FOR SAFETY.ON MRSA NARES PREC MEASURES,IV SITEON L F/A PATENT AND INTACT ON L F/A., IVF INFUSING WELL W/O ANY PROBLEMS.
[2017-01-18 20:44] VITALS: BP 138/72
[2017-01-18] MEDS: CEFTRIAXONE 1 G in IV DEXTROSE 5% 50 ML IV SCH (21:58)
[2017-01-18] MEDS: DOCUSATE SODIUM 100 MG CAPSULE PO SCH (21:59)
[2017-01-18] MEDS: OLANZAPINE ZYDIS 5 MG TAB.RAPDIS PO SCH (22:00)
[2017-01-18] MEDS: HYDROCODONE/APAP 5-325MG TABLET PO PRN (22:03)
--- NOTE | 2017-01-18 22:03 | NUR ---
REPOSITIONED FOR COMFORT. CONSUMED 100%SNACKS, COMPLEINED GEN PAIN, MEDICATED W/ NORCO, NO AGITATIVE BEHAVIOR NOTED,RESTED FOR A WHILE.
--- NOTE | 2017-01-18 23:30 | NUR ---
COMPLAINED OF ITCHING ON THE FACE , UPON ASSESSMENT ,FACE NOTED TO BE FLAKY AND VERY DRY, GOOD PM CARE AND SHOWER DONE, MD NOTIFIED RE ABOVE FINDINGS, BENADRYL AND VIT E CREAM ORDERED.
[2017-01-19] MEDS ORDERED: diphenhydrAMINE 25 MG CAP PO ONE (00:36)
[2017-01-19] MEDS: ACETAMINOPHEN 325 MG TABLET PO PRN (00:39)
[2017-01-19] MEDS: VITAMIN E CREAM 56.7 GM JAR TP SCH ×3 (00:39→22:00)
[2017-01-19] MEDS: ZOLPIDEM 5 MG TABLET PO PRN (00:39)
[2017-01-19] MEDS: diphenhydrAMINE 25 MG CAP PO PRN ×2 (00:39→10:29)
[2017-01-19 03:41] VITALS: BP 121/75
[2017-01-19] MEDS: ZIPRASIDONE MESYLATE 20 MG VIAL IM PRN ×2 (04:20→22:01)
--- NOTE | 2017-01-19 06:06 | NUR ---
PT SLEPT VERY LITTLE DURING THE NIGHT, PT DENIED HAVING ANY PAIN OR DIFFICULTY BREATHING. PT DID COMPLAIN OF ITCHING DURING THE NIGHT, BENADRYL AND VITAMIN E CREAM APPLIED, VITAMIN E CREAM MORE EFFECTIVE TO SOOTH PT THEN BENADRYL. PT DURING THE NIGHT BECAME RESTLESS THEN BECAME AGITATED, YELLING AND TRYING TO PULL LINES AND GET OUT OF BED, MEDICATION WAS GIVEN BUT WAS SLIGHTLY EFFECTIVE. ALL NEEDS MET, 1:1 SITTER AT BEDSIDE. SAFETY MEASURES ARE IN PLACE, CALL LIGHT WITHIN REACH, BED ALARM IS ON. Addendum: 01/19/17 at 0653 by KADE EMMANUEL RN PT'S TAUGHT PROCESS WAS VERY JUMBLED, PT REPEATED CONVERSATIONS OVER AND OVER AGAIN, HAD DELUSIONAL TAUGHT AND WAS STATING THAT THERE WERE BUGS ALL OVER THE HERRERA AND BED.
[2017-01-19] MEDS: PANTOPRAZOLE SODIUM 40 MG TABLET.DR PO SCH (06:30)
[2017-01-19 08:00] VITALS: BP 116/60
--- NOTE | 2017-01-19 08:00 | NUR ---
awake alert, oriented x 1, hyperverbal, still has hallucinations (bugs in the wall) and paranoid that everything is dirty and with bacteria, reoriented to place and time, cooperative and calm at this time, rashes on her face and neck noted, denies of pain, 1:1 sitter at bedside, needs attended and met
[2017-01-19] MEDS: ASCORBIC ACID 500 MG TABLET PO SCH (09:03)
[2017-01-19] MEDS: OXCARBAZEPINE 300 MG TABLET PO SCH ×2 (09:03→21:59)
[2017-01-19] MEDS: ASPIRIN 81 MG TAB.CHEW PO SCH (09:03)
[2017-01-19] MEDS: ENOXAPARIN SODIUM 40 MG/0.4 ML DISP.SYRIN SQ SCH (09:05)
[2017-01-19] MEDS: MUPIROCIN 2% OINT 22 GM TUBE NS SCH ×2 (09:06→21:57)
[2017-01-19] MEDS: FERROUS SULFATE 325 MG TABEC PO SCH ×2 (10:27→18:08)
[2017-01-19 12:00] VITALS: BP 136/74
--- NOTE | 2017-01-19 12:00 | NUR ---
good appetite, didn't take a nap at all since this am
[2017-01-19] MEDS: IV NS 1000 ML 1,000 ML IV PRN (12:39)
--- NOTE | 2017-01-19 14:45 | NUR ---
son here visiting
--- NOTE | 2017-01-19 17:02 | NUR ---
family here visiting
--- NOTE | 2017-01-19 19:00 | NUR ---
RECD PT IN BED, IN APPARENTLY FAIR CONDITION,RESTING QUIETLY,NO ACUTE DISTRESS NOTED, SITTER AT BEDSIDE, STILL ON ISOLATION FOR MRSA, PRECAUTIONARY MEASURES OBSERVED AND MAINTAINED.IV SITE PATENT AND INTACT ON LEFT FOREARM,IV FLUIDS INFUSING WELL W/O ANY PROBLEMS.
--- NOTE | 2017-01-19 19:23 | NUR ---
resting now, all needs attended and met, no distress noted, sitter at bedside
[2017-01-19 19:24] VITALS: BP 121/65
--- NOTE | 2017-01-19 21:30 | NUR ---
PT STARTED TO BE HYPERVERBAL AND AGITATED,ACTIVE LISTENING PROVIDED, RN TRIED TO CALM THE PT AND ASSISTED SITTER TO REPOSITION HER FOR COMFORT AND SAFETY.PT'S BEHAVIOR HAS BEEN ESCALATING,SHE IS HALLUCINATING ABOUT AN EARTHQUAKE AND THAT SHE NEEDED TO LEAVE [place], REFUSED TO BE TOUCHED AND VERT UNCOOPERATIVE AT THIS TIME. ,
[2017-01-19] MEDS: CEFTRIAXONE 1 G in IV DEXTROSE 5% 50 ML IV SCH (21:57)
[2017-01-19] MEDS: DOCUSATE SODIUM 100 MG CAPSULE PO SCH (21:58)
[2017-01-19] MEDS: OLANZAPINE ZYDIS 5 MG TAB.RAPDIS PO SCH (21:59)
--- NOTE | 2017-01-19 22:00 | NUR ---
PT VERY AGITATED AND WANTING TO HAVE SITTER GET OUT OF HER ROOM,SHE IS EVEN CALLING HER DIFFERENT NAMES AND MAKING NASTY COMMENTS.RN TALKED TO PT CALMLY AND REORIENTED HER TO HER SURROUNDINGS, ASSIGNED ANEW SITTER TO LOOK AFTER HER,MEDICATED HER WITH GEODON ORDERED.HS CARE RENDERED, OFFERED PT HS SNACKS AND PROVIDED HER A NICE COLD DRINK.
--- NOTE | 2017-01-19 23:00 | NUR ---
DUE MEDS GIVEN ,SLEEPING AND NO DISTRESS NOTED .NO C/O PAIN OR DISCOMFORTS. CALL LITE W/I REACH.
--- NOTE | 2017-01-19 23:48 | NUR ---
HAD A BIG BLACK FORMED BM,CLEANED AND KEPT DRY,PT CALMER NOW AND IS VERY PLEASANT TO TALK TO.
[2017-01-20] MEDS: IV NS 1000 ML 1,000 ML IV PRN ×2 (02:21→19:32)
[2017-01-20] MEDS: diphenhydrAMINE 25 MG CAP PO PRN ×2 (02:22→17:48)
--- NOTE | 2017-01-20 02:22 | NUR ---
PT WOKE UP AND SCRATCHING CHIN, REQUESTING ITCHY PILL, BENADRYL 25MG GIVEN, WENT BACK TO SLEEP.NOTHING UNUSUAL NOTED.REPOSITIONED.
[2017-01-20 05:09] VITALS: BP 115/65
[2017-01-20] MEDS: PANTOPRAZOLE SODIUM 40 MG TABLET.DR PO SCH ×2 (06:19→08:26)
--- NOTE | 2017-01-20 07:24 | NUR ---
AM CARE DONE,DIAPER CHANGED,HOB UP ,IV FLUIDS INFUSING WELL.ENDORSED TO AM NURSE IN FAIR CONDITION.
[2017-01-20] MEDS: ASPIRIN 81 MG TAB.CHEW PO SCH (08:26)
[2017-01-20] MEDS: ASCORBIC ACID 500 MG TABLET PO SCH (08:26)
[2017-01-20] MEDS: OXCARBAZEPINE 300 MG TABLET PO SCH ×2 (08:26→20:15)
[2017-01-20] MEDS: ENOXAPARIN SODIUM 40 MG/0.4 ML DISP.SYRIN SQ SCH (08:27)
[2017-01-20] MEDS: VITAMIN E CREAM 56.7 GM JAR TP SCH ×2 (08:30→20:17)
[2017-01-20] MEDS: MUPIROCIN 2% OINT 22 GM TUBE NS SCH ×2 (09:50→20:14)
[2017-01-20] MEDS: FERROUS SULFATE 325 MG TABEC PO SCH ×2 (11:32→17:48)
[2017-01-20 13:27] VITALS: BP 112/52
[2017-01-20 15:50] VITALS: BP 92/45
--- NOTE | 2017-01-20 18:59 | NUR ---
END OF SHIFT NOTES. A/O X1. V/S STABLE. NO S/S OF ACUTE DISTRESS. 1:1 SITTER AT BEDSIDE FOR SAFETY.
--- NOTE | 2017-01-20 19:30 | NUR ---
RECEIVED PT IN BED AWAKE, RESTING IN BED. IN NO ACUTE SIGNS OF DISTRESS. IVF INFUSING. SITTER AT BEDSIDE. SAFETY OBSERVED.
[2017-01-20] MEDS: ZIPRASIDONE MESYLATE 20 MG VIAL IM PRN (19:59)
--- NOTE | 2017-01-20 19:59 | NUR ---
PT STARTED SCREAMING, VERY AGITATED AT THIS TIME. GEODON IM WAS GIVEN PRESCRIBED. WILL MONITOR.
[2017-01-20 20:00] VITALS: BP 110/46
[2017-01-20] MEDS: DOCUSATE SODIUM 100 MG CAPSULE PO SCH (20:15)
[2017-01-20] MEDS: OLANZAPINE ZYDIS 5 MG TAB.RAPDIS PO SCH (20:15)
[2017-01-20] MEDS: CEFTRIAXONE 1 G in IV DEXTROSE 5% 50 ML IV SCH (20:15)
[2017-01-21] MEDS: ZOLPIDEM 5 MG TABLET PO PRN ×2 (00:54→21:00)
[2017-01-21 05:30] VITALS: BP 140/66
--- NOTE | 2017-01-21 06:18 | NUR ---
PT SLEPT TOTAL OF 4 HRS DURING SHIFT AFTER GIVEN AMBIEN. AGITATED, AND SCREAMS AT TIMES. WAS GIVEN GEODON IM, PT WAS CALM AND PLEASANT AT TIMES, LIKES TO TALK TO STAFF, SNACKS GIVEN AND TOLERATED WELL. TURNED AND REPOSITIONED. IVF STILL RUNNING. SAFETY MAINTAINED. SITTER AT BEDSIDE FOR SAFETY.
[2017-01-21 07:33] VITALS: BP 119/61
[2017-01-21 07:37] LABS: BASOPHILS % (AUTO) 0.5 % (0.0-2.0); EOSINOPHILS # (AUTO) 0.5 K/uL (0.0-0.7); EOSINOPHILS % (AUTO) 9.5 % (0.0-7.0); HEMATOCRIT 31.5 % (37-47); HEMOGLOBIN 10.6 G/DL (12.0-16.0); LYMPHOCYTES # (AUTO) 1.1 K/UL (0.8-4.8); LYMPHOCYTES % (AUTO) 19.6 % (20.5-51.5); MEAN CORPUSCULAR HEMOGLOBIN 29.3 UUG (27.0-31.0); MEAN CORPUSCULAR HGB CONC 34 g/dL (32.0-37.0); MEAN CORPUSCULAR VOLUME 87.6 FL (81.0-99.0); MONOCYTES # (AUTO) 0.5 K/UL (0.1-1.30); MONOCYTES % (AUTO) 9.4 % (0.0-11.0); NEUTROPHILS # (AUTO) 3.6 K/UL (1.8-8.9); PLATELET COUNT (AUTO) 259 K/UL (150-450); RED CELL DISTRIBUTION WIDTH 14.5 % (11.5-14.5); WHITE BLOOD COUNT (AUTO) 5.7 K/UL (4.0-11.2)
[2017-01-21] MEDS: OXCARBAZEPINE 300 MG TABLET PO SCH ×2 (08:00→21:01)
[2017-01-21] MEDS: ASPIRIN 81 MG TAB.CHEW PO SCH (08:00)
[2017-01-21] MEDS: ASCORBIC ACID 500 MG TABLET PO SCH (08:01)
[2017-01-21] MEDS: MUPIROCIN 2% OINT 22 GM TUBE NS SCH ×2 (08:01→20:59)
[2017-01-21] MEDS: ENOXAPARIN SODIUM 40 MG/0.4 ML DISP.SYRIN SQ SCH (08:02)
[2017-01-21] MEDS: VITAMIN E CREAM 56.7 GM JAR TP SCH ×2 (08:26→20:59)
[2017-01-21 09:33] LABS: ALBUMIN 2.8 g/dL (3.4-5.0); BILIRUBIN,TOTAL 0.2 mg/dL (0.2-1.0); CALCIUM 8.7 mg/dL (8.5-10.1); CREATININE 1.3 mg/dL (0.6-1.3); PHOSPHOROUS 3.9 mg/dL (2.5-4.9); POTASSIUM 4.5 mmol/L (3.5-5.1)
--- NOTE | 2017-01-21 10:10 | NUR ---
Spoke to the patient's son, Joe [ ], about discharge planning and he was adamant on the patient not going back to [facility]. He stated that he plans on reporting them to the Health Department and shutting them down because his mother has had 6 UTIs since the beginning of the year. He also added that he tried closing down [facility] in the past. Reminded him that [facility] also declined her admission in the past because she is a ferry terminal supervisor patient and they are unable to provide the care she needs due to her psychiatric condition. He understands and agreed for the patient's information to be faxed to nearby facilities up to [place]. Faxed her information to the following SNFs: 1) [facility] - - - [place] said that his DON will review the case 2) [facility] - - - [place] said they can not admit the patient per DON 3) [facility] - - - [place] said they can not accommodate the patient 4) [facility] - - 5) [facility] - - 6) [facility] - [phone] - 7) [facility] - - 8) [facility] - - 9) [facility] - - 10) [facility] - - - S[place] said they do not have long-term beds available 11) [facility] - - - Keyla called and stated they can not admit the patient. 12) [facility] - - - [place] stated they do not have long-term beds 13) [facility] - - 14) [facility] - - 15) [facility] - - 16) [facility] - - - [place] said they do not have any beds available 17) [facility] - - 18) [facility] - - 19) [facility] - - 20) [facility] - - 21) [facility] - - - [place] stated they don't have any ferry terminal supervisor beds available 22) [facility] - - 23) [facility] - - 24) [facility] - - 25) [facility] - - 26) [facility] - - - 27) [facility] - - 28) [facility] - - 29) [facility] - - 30) [facility] - - 31) [facility] - - 32) [facility] - - 33) [facility] - -
[2017-01-21 10:19] LABS: MAGNESIUM 1.9 mg/dL (1.8-2.4)
[2017-01-21] MEDS ORDERED: LORAZEPAM 2 MG/1 ML VIAL IV ONE (10:45)
[2017-01-21] MEDS: FERROUS SULFATE 325 MG TABEC PO SCH ×2 (11:06→17:13)
[2017-01-21 11:30] VITALS: BP 138/65
[2017-01-21 15:51] VITALS: BP 140/73
[2017-01-21] MEDS: diphenhydrAMINE 25 MG CAP PO PRN (16:35)
--- NOTE | 2017-01-21 18:49 | NUR ---
END OF SHIFT NOTES. PT V/S STABLE. NO SIGNS OF ACUTE DISTRESS. ATIVAN GIVEN, PT SLEPT TOTAL OF 4 HOURS DURING SHIFT. NEEDS ATTENDED. PT REMAINED CALM AND COOPERATIVE. 1:1 SITTER AT BEDSIDE FOR SAFETY.
--- NOTE | 2017-01-21 19:00 | NUR ---
RECD PT IN BED, QUIETLY RESTING, NO ACUTE DISTRESS NOTED,VITAL SIGNS TAKEN AND RECORDED, IV FLUIDS INFUSING WELL ON LEFT FOREARM,NEEDS ATTENDED .
[2017-01-21] MEDS: IV NS 1000 ML 1,000 ML IV PRN (19:11)
[2017-01-21 20:00] VITALS: BP 104/55
[2017-01-21] MEDS: OLANZAPINE ZYDIS 5 MG TAB.RAPDIS PO SCH (20:59)
[2017-01-21] MEDS: DOCUSATE SODIUM 100 MG CAPSULE PO SCH (20:59)
[2017-01-21] MEDS: CEFTRIAXONE 1 G in IV DEXTROSE 5% 50 ML IV SCH (20:59)
--- NOTE | 2017-01-21 22:00 | NUR ---
HS CARE RENDERED,DUE MEDS GIVEN,CONSUMED 100% OF SNACKS.KEPT DRY AND COMFORTABLE.
--- NOTE | 2017-01-22 01:44 | NUR ---
SLEPT AT LONG INTERVALS,REPOSITIONED FOR COMFORT.NI C/O PAINS OR DISCOMFORT NOTED.
--- NOTE | 2017-01-22 03:30 | NUR ---
C/O ITCHING ON THE FACE, MEDICATED W/ BENADRYL 25 MG. P.O.,TOLERATED IT WELL.
[2017-01-22] MEDS: diphenhydrAMINE 25 MG CAP PO PRN (05:06)
[2017-01-22 05:42] VITALS: BP 107/56
[2017-01-22] MEDS: PANTOPRAZOLE SODIUM 40 MG TABLET.DR PO SCH (05:51)
--- NOTE | 2017-01-22 07:20 | NUR ---
RECEIVED PATIENT FROM SALES SYSTEMS ENGINEER
[2017-01-22 07:37] VITALS: BP 111/65
[2017-01-22] MEDS: ASCORBIC ACID 500 MG TABLET PO SCH (08:08)
[2017-01-22] MEDS: OXCARBAZEPINE 300 MG TABLET PO SCH ×2 (08:08→20:50)
[2017-01-22] MEDS: ASPIRIN 81 MG TAB.CHEW PO SCH (08:08)
[2017-01-22] MEDS: MUPIROCIN 2% OINT 22 GM TUBE NS SCH ×2 (08:09→20:50)
[2017-01-22] MEDS: ENOXAPARIN SODIUM 40 MG/0.4 ML DISP.SYRIN SQ SCH (08:11)
[2017-01-22] MEDS: VITAMIN E CREAM 56.7 GM JAR TP SCH ×2 (08:36→20:51)
--- NOTE | 2017-01-22 10:45 | NUR ---
DR LEDEZMA IN WITH DISCHARGE ORDER FOR SNF. CLINICAL RESEARCH TECH MADE AWARE
[2017-01-22] MEDS ORDERED: NITR100C11 PO (11:39)
[2017-01-22 11:44] VITALS: BP 131/68
[2017-01-22] MEDS: FERROUS SULFATE 325 MG TABEC PO SCH ×2 (11:58→17:27)
--- NOTE | 2017-01-22 13:00 | NUR ---
Spoke with Joe [Son [phone]] to discuss discharge planning. This auto care center manager was unable to have any discussions with Joe as he became irate and began screaming during the phone conservation. Joe then conference his on the phone who attempted to calm Joe down, however it was unsuccessful. Joe then asked to speak with Joanne the project development leader to inquire about his mom not being admitted to the Mental Health Unit. This auto care center manager informed Joanne of Joe's request. CM/LOLA to follow up.
--- NOTE | 2017-01-22 13:37 | NUR ---
Keke, correctional case manager requested that this board writer called son, Joe, who was demanding to speak to someone in admin. Spoke with son, Joe, who is demanding more time in the hospital. He is aware there have been 32 rejections from facilities. Son is refusing to allow mother to go to [facility]. Son says he will appeal the discharge today. He says he wants to vero [facility]. Son wants her to go to [facility] where she has been in the past. Thye have not accepted the pt. up to this point. He says " I will appeal the discharge today." He wants to start a Medicare appeal. Keke correctional case manager advised of this at [phone]. Son wants to speak to Keke. He was davsied that his mom does not meet any acute psychiatric admission criteria.
--- NOTE | 2017-01-22 14:08 | NUR ---
Spoke to Joe who informed this teacher assistant that he is appealing the discharge with [facility]. He also was very apologetic for his behavior earlier. This teacher assistant told Joe that I would be in communication with [facility] once they contacted our offices. CM/SW to follow up.
[2017-01-22 15:44] VITALS: BP 119/68
[2017-01-22 19:28] VITALS: BP 130/66
[2017-01-22] MEDS: NITROFURANTOIN/NITROFURAN MAC 100 MG CAPSULE PO SCH (20:50)
[2017-01-22] MEDS: OLANZAPINE ZYDIS 5 MG TAB.RAPDIS PO SCH (20:50)
[2017-01-22] MEDS: DOCUSATE SODIUM 100 MG CAPSULE PO SCH (20:50)
[2017-01-22] MEDS: ZIPRASIDONE MESYLATE 20 MG VIAL IM PRN (21:51)
[2017-01-22] MEDS: ZOLPIDEM 5 MG TABLET PO PRN (23:23)
[2017-01-23 04:58] VITALS: BP 132/79
[2017-01-23] MEDS: ZIPRASIDONE MESYLATE 20 MG VIAL IM PRN ×2 (05:07→13:37)
[2017-01-23] MEDS: PANTOPRAZOLE SODIUM 40 MG TABLET.DR PO SCH (06:08)
--- NOTE | 2017-01-23 06:36 | NUR ---
END OF SHIFT NOTES: PT IN BED, STILL SCREAMS AT TIMES, WAS GIVEN GEODON IM 2X DURING SHIFT. SLEPT ON AND OFF. SITTER AT BEDSIDE. CLOSELY MONITORED. SON VISITED LAST NIGHT. ALL CARE RENDERED. SAFETY MAINTAINED.
[2017-01-23] MEDS: ASPIRIN 81 MG TAB.CHEW PO SCH (09:08)
[2017-01-23] MEDS: ASCORBIC ACID 500 MG TABLET PO SCH (09:09)
[2017-01-23] MEDS: OXCARBAZEPINE 300 MG TABLET PO SCH ×2 (09:09→20:24)
[2017-01-23] MEDS: NITROFURANTOIN/NITROFURAN MAC 100 MG CAPSULE PO SCH ×2 (09:09→20:24)
[2017-01-23] MEDS: ENOXAPARIN SODIUM 40 MG/0.4 ML DISP.SYRIN SQ SCH (09:10)
[2017-01-23] MEDS: FERROUS SULFATE 325 MG TABEC PO SCH ×2 (11:00→18:13)
[2017-01-23 11:13] VITALS: BP 101/60
[2017-01-23 15:16] VITALS: BP 118/61
--- NOTE | 2017-01-23 15:31 | NUR ---
DAILY NOTED COMBATIVE WITH CARE. DEONDRE GIVEN NOT RESPONDING WELL. YELLING OUT , SCREAMING WITH HELP. TRYING TO PULL OUT IV'S IV TUBING REINFORCED WITH GAUZE. TRING TO GET OOB. NOTIFIED INCREASED DEONDRE
[2017-01-23] MEDS: VITAMIN E CREAM 56.7 GM JAR TP SCH ×2 (15:41→20:26)
[2017-01-23] MEDS: HYDROCODONE/APAP 5-325MG TABLET PO PRN (16:33)
[2017-01-23] MEDS: diphenhydrAMINE 25 MG CAP PO PRN (16:33)
[2017-01-23] MEDS ORDERED: ZIPRASIDONE MESYLATE 20 MG VIAL IM PRN (18:00)
--- NOTE | 2017-01-23 19:35 | NUR ---
PATIENT AWAKE IN BED, YELLING, SCREAMING AND CURSING OUT AT STAFF. PATIENT GIVEN GEODON 2MG IM ORDERED PER DR. LEDEZMA. VSS. SITTER AT BEDSIDE FOR SAFETY. WILL CONTINUE TO MONITOR.
--- NOTE | 2017-01-23 19:50 | NUR ---
PATIENT ATTEMPTING TO PULL OUT IV HEPLOCK AND BECOMING VERY COMBATIVE TOWARDS STAFF. RECEIVED ORDER FOR SOFT MITTENS. SITTER AT BESIDE. WILL CONTINUE TO MONITOR.
[2017-01-23 20:00] VITALS: BP 141/88
[2017-01-23] MEDS: DOCUSATE SODIUM 100 MG CAPSULE PO SCH (20:23)
[2017-01-23] MEDS: OLANZAPINE ZYDIS 5 MG TAB.RAPDIS PO SCH (20:24)
--- NOTE | 2017-01-23 20:25 | NUR ---
PATIENT REFUSED HS MEDS.
[2017-01-23] MEDS ORDERED: LORAZEPAM 2 MG/1 ML VIAL IV ONE (22:00)
--- NOTE | 2017-01-23 22:05 | NUR ---
DEONDRE INEFFECTIVE. PATIENT VERY AGITATED, SCREAMING AND YELLING. WHEN APPROACHED PATIENT BECOMES AGGRESSIVE TOWARDS STAFF. RECEIVED ORDER FROM DR. LEDEZMA FOR ATIVAN 1MG IV X1. GIVEN PER MILK AND CREAM GRADER. SITTER AT BEDSIDE. WILL CONTINUE TO MONITOR.
[2017-01-23] MEDS ORDERED: LORAZEPAM 2 MG/1 ML VIAL ONE (22:09)
--- NOTE | 2017-01-23 23:30 | NUR ---
ATIVAN EFFECTIVE. PATIENT QUIET AT THIS TIME, DOZING OF AND ON. SITTER AT BEDSIDE. WILL CONTINUE TO MONITOR.
--- NOTE | 2017-01-24 05:10 | NUR ---
PATIENT AWAKE IN ROOM WITH SITTER AT BEDSIDE. PATIENT IS CALM AND APPROPRIATE AT THIS TIME. SLEPT WELL AFTER ATIVAN WAS GIVEN. NO NEED FOR MITTENS AT THIS TIME. WILL CONTINUE TO MONITOR.
[2017-01-24] MEDS: PANTOPRAZOLE SODIUM 40 MG TABLET.DR PO SCH (06:09)
[2017-01-24 06:25] VITALS: BP 133/73
--- NOTE | 2017-01-24 06:27 | NUR ---
PATIENT AWAKE IN BED. VERY APPROPRIATE AND PLEASANT WHEN APPROACHED. SITTER AT BEDSIDE. SLEPT WELL. ALL NEEDS ATTENDED. WILL CONTINUE TO MONITOR.
--- NOTE | 2017-01-24 07:30 | NUR ---
PT RECEIVED IN BED AWAKE.SITTER AT BED SIDE.ASSESSMENT DONE.
[2017-01-24] MEDS: NITROFURANTOIN/NITROFURAN MAC 100 MG CAPSULE PO SCH (08:03)
[2017-01-24] MEDS: ASPIRIN 81 MG TAB.CHEW PO SCH (08:03)
[2017-01-24] MEDS: ASCORBIC ACID 500 MG TABLET PO SCH (08:03)
[2017-01-24] MEDS: OXCARBAZEPINE 300 MG TABLET PO SCH (08:03)
[2017-01-24] MEDS: ENOXAPARIN SODIUM 40 MG/0.4 ML DISP.SYRIN SQ SCH (08:06)
[2017-01-24] MEDS: VITAMIN E CREAM 56.7 GM JAR TP SCH (08:06)
[2017-01-24] MEDS ORDERED: LORAZEPAM 2 MG/1 ML VIAL IV PRN (10:00)
[2017-01-24] MEDS: FERROUS SULFATE 325 MG TABEC PO SCH ×2 (11:05→17:34)
[2017-01-24 15:46] VITALS: BP 127/67
--- NOTE | 2017-01-24 16:27 | NUR ---
pt refused to take the picture.
--- NOTE | 2017-01-24 18:12 | NUR ---
d/c orders received noted and carried out,d/c heplock per md orders.,pt left the facility via ambulances in stable condition.rn report given to tray in long-term,
== END 2017-01-24 18:20 | DRG 682 ==
LOC: ER 21:12 → MED 01-16 00:39
DX: N17.0 Acute kidney failure with tubular necrosis (principal); G93.41 Metabolic encephalopathy; I13.0 Hypertensive heart and chronic kidney disease with heart failure and stage 1 through stage 4 chronic kidney disease, or unspecified chronic kidney disease; N39.0 Urinary tract infection, site not specified; F31.64 Bipolar disorder, current episode mixed, severe, with psychotic features; G91.9 Hydrocephalus, unspecified; D68.59 Other primary thrombophilia; G91.2 (Idiopathic) normal pressure hydrocephalus; F03.91 Unspecified dementia, unspecified severity, with behavioral disturbance; F29 Unspecified psychosis not due to a substance or known physiological condition; I50.9 Heart failure, unspecified; J44.9 Chronic obstructive pulmonary disease, unspecified; I25.10 Atherosclerotic heart disease of native coronary artery without angina pectoris; N18.9 Chronic kidney disease, unspecified; E11.22 Type 2 diabetes mellitus with diabetic chronic kidney disease; K21.9 Gastro-esophageal reflux disease without esophagitis; Z98.2 Presence of cerebrospinal fluid drainage device; Z74.01 Bed confinement status; Z91.018 Allergy to other foods; Z88.6 Allergy status to analgesic agent; Z88.0 Allergy status to penicillin; D64.9 Anemia, unspecified; E03.9 Hypothyroidism, unspecified; Z87.440 Personal history of urinary (tract) infections; Z79.82 Long term (current) use of aspirin; E83.42 Hypomagnesemia; E66.9 Obesity, unspecified; Z74.09 Other reduced mobility; Q75.3 Macrocephaly
CPT/HCPCS: 36415; 51702; 70030-TC; 70450; 71010; 83605; 83735; 84100; 84443; 85025; 85730; 87040; 87077; 87086; 93005; A4663; C1758; J0696; J1580; J1650; J1956; J2060; J2185; J3486; J3490; J7030; J7060; Q0163